=== PATIENT | female | born 1960 | race Caucasian/White ===

== ENCOUNTER 2017-09-24 22:59 | Emergency (ER) | END 2017-09-25 01:44 | disposition home or self-care (01) ==

== ENCOUNTER 2017-10-02 12:51 | Emergency (ER) | END 2017-10-02 17:49 | disposition home or self-care (01) ==

== ENCOUNTER 2018-05-05 09:23 | Day surgery (SDC) | payer MEDICAID, OTHER ==
[~2018-05-05] VITALS: Ht 162.6 cm; Wt 68.0 kg
[~2018-05-05 09:23] MED LIST: IBUP-1542 PO
[2018-05-05 11:01] VITALS: Ht 162.6 cm; Wt 68.0 kg
[2018-05-05] MEDS ORDERED: MULTIVITAMINS PO (11:11)
[2018-05-05 11:15] VITALS: BP 141/71; PULSE 64; RESP 19
[2018-05-05] MEDS ORDERED: MIDAZOLAM 1 MG/ML 2 ML INJ ONE ×2 (11:42)
[2018-05-05] MEDS ORDERED: FENTAnyl 50 MCG/ML VIAL ONE (11:42)
[2018-05-05 12:19] VITALS: BP 107/67; PULSE 64; RESP 11
== END 2018-05-05 15:47 | disposition home or self-care (01) ==
LOC: GIL 09:23
PROVIDERS: ATTEND Internal Medicine Gastroenterology
DX: Z12.11 Encounter for screening for malignant neoplasm of colon (principal); K64.8 Other hemorrhoids; K57.30 Diverticulosis of large intestine without perforation or abscess without bleeding
CPT/HCPCS: 45378; J2250; J3010